=== PATIENT | male | born 1995 | race African-American/Black ===

== ENCOUNTER 2019-08-22 01:46 | Emergency (ER) | payer SELFPAY ==
[~2019-08-22] VITALS: Ht 175.3 cm; Wt 77.3 kg
[2019-08-22 01:49] VITALS: BP 124/74; PULSE 84; TEMP 97.3
== END 2019-08-22 02:55 | disposition left against medical advice (07) ==
LOC: COL.ER 01:46
DX: R06.00 Dyspnea, unspecified (principal); F17.210 Nicotine dependence, cigarettes, uncomplicated

== ENCOUNTER 2023-05-18 12:24 | Emergency (ER) | payer SELFPAY ==
[~2023-05-18] VITALS: Ht 175.3 cm; Wt 80.5 kg
[2023-05-18 12:26] VITALS: TEMP 98.8
[2023-05-18] MEDS ORDERED: methylPREDNISolone Sod Succ 125 MG/2 ML VIAL IV ONE (12:45)
[2023-05-18] MEDS ORDERED: Ondansetron 4 MG/2 ML VIAL IV ONE (12:45)
[2023-05-18] MEDS ORDERED: NS 1,000 ML IV ONE (12:45)
[2023-05-18 14:19] VITALS: BP 119/80; PULSE 79
== END 2023-05-18 14:19 | disposition home or self-care (01) ==
LOC: COL.ER 12:24
DX: R09.89 Other specified symptoms and signs involving the circulatory and respiratory systems (principal); T43.595A Adverse effect of other antipsychotics and neuroleptics, initial encounter
CPT/HCPCS: J2405; J2930; J7030